=== PATIENT | female | born 1985 | race Caucasian/White ===

== ENCOUNTER → 2022-06-04 | Day surgery (SDC) | payer BC | END | disposition home or self-care (01) | LOC: JRADUS-SUR 08:42 | PROVIDERS: ATTEND Student in an Organized Health Care Education/Training Program | PROC: BU18YZZ Fluoroscopy of Uterus and Fallopian Tubes using Other Contrast (ICD-10-PCS; principal; 2022-06-04) | DX: N97.9 Female infertility, unspecified (principal) | CPT/HCPCS: 58340; 74740-TC-FY; 76000-TC-FY; 84703 ==